=== PATIENT | male | born 2000 | race Two or more races ===

== ENCOUNTER 2023-08-18 15:19 | Inpatient (IN) | payer OTHER ==
[2023-08-18] MEDS ORDERED: KETAMINE HCL 500 MG/10 ML VIAL ONE (18:11)
[2023-08-18] MEDS: KETAMINE HCL 200 MG/20 ML VIAL IVPUSH ONE (18:14)
[2023-08-18 19:22] LABS: HEMATOCRIT 48.2 % (35.4-49); MCH 30.2 pg (25.7-33.7); MCHC 33.1 g/dl (32.0-35.9); MEAN CELL VOLUME 91.3 fl (80-96); MEAN PLT VOLUME 9.4 fl (7.5-11.1); PLATELET COUNT 195.2 10^3/uL (134-434); RBC 5.28 10^6/uL (4.00-5.60); RDW 13.1 % (11.9-15.9); WHITE BLOOD COUNT 14.7 10^3/uL (4.0-10.8)
[2023-08-18 19:31] LABS: INR 1.04 (0.83-1.09); PROTHROMBIN TIME (PATIENT) 12.1 SEC (9.7-13.0)
[2023-08-18 19:34] LABS: ACTIVATED PTT 30.8 SECONDS (25.2-36.5)
[2023-08-18 19:36] LABS: PLATELET ESTIMATE ADEQUATE
[2023-08-18 19:42] LABS: ALBUMIN 5.2 g/dl (3.4-5.0); BILIRUBIN,TOTAL 0.7 mg/dl (0.2-1); CALCIUM 9.9 mg/dl (8.5-10.1); POTASSIUM 3.4 mmol/L (3.5-5.1); TOT PROT 7.9 g/dl (6.4-8.2)
[2023-08-19 01:58] VITALS: BMI 24.3
[2023-08-19] MEDS ORDERED: ACETAMINOPHEN 1000 MG/100 ML BAG IVPB PRN (02:02)
[2023-08-19] MEDS: POTASSIUM CHLORIDE ORAL LIQUID 20 MEQ/15 ML PO ONE ×2 (05:47→05:48)
[2023-08-19] MEDS: KCL 10 MEQ IVPB 10 MEQ/100 ML INFUS.BAG IVPB SCH (05:47)
[2023-08-19 09:56] LABS: BASO % 0.7 % (0-2.0); EOS % 0.8 % (0-4.5); HEMATOCRIT 42.8 % (35.4-49); HEMOGLOBIN 14.2 GM/dL (11.7-16.9); LYMPH % 22.5 % (8-40); MCHC 33.2 g/dl (32.0-35.9); MEAN CELL VOLUME 90.4 fl (80-96); MEAN PLT VOLUME 8.8 fl (7.5-11.1); MONO % 8.9 % (3.8-10.2); NEUT % 67.1 % (42.8-82.8); PLATELET COUNT 193 10^3/uL (134-434); RBC 4.74 M/mm3 (4.00-5.60); RDW 12.7 % (11.9-15.9); WHITE BLOOD COUNT 6.7 K/mm3 (4.0-10.0)
[2023-08-19] MEDS: NICOTINE 7 MG/24 HOURS TOPICAL PATCH TD SCH (10:14)
[2023-08-19] MEDS ORDERED: FENTANYL CITRATE/PF 50 MCG/ML VIAL ONE ×3 (10:45→11:50)
[2023-08-19] MEDS ORDERED: SUCCINYLCHOLINE CHLORIDE 200 MG/10 ML SYRINGE ONE (10:45)
[2023-08-19] MEDS ORDERED: PROPOFOL 20 ML ONE (10:45)
[2023-08-19] MEDS ORDERED: MIDAZOLAM HCL 2 MG/2 ML SINGLE DOSE VIAL ONE (10:46)
[2023-08-19] MEDS ORDERED: ROCURONIUM BROMIDE 50 MG/5 ML SYRINGE ONE (10:46)
[2023-08-19] MEDS ORDERED: FLU VACCINE (FLULAVAL) PF 60 MCG/0.5 ML SYRINGE 2023-2024 IM ONE (11:00)
[2023-08-19] MEDS: ceFAZolin SODIUM 1 GM VIAL IVPB ONE (11:01)
[2023-08-19 11:22] LABS: SYPHILIS W/ RPR CONF NON-REACTIVE (NONREACTIVE)
[2023-08-19 11:50] LABS: HIV INTERPRETATION NEGATIVE (NEGATIVE)
[2023-08-19] MEDS ORDERED: ONDANSETRON 4 MG/2 ML VIAL IVPUSH PRN ×2 (12:25→12:59)
[2023-08-19] MEDS ORDERED: HYDROmorphone HCl 2 MG/ML VIAL IVPB PRN (12:59)
[2023-08-19] MEDS ORDERED: oxyCODONE HCL 5 MG TABLET PO PRN (12:59)
[2023-08-19] MEDS: LACTATED RINGERS SOLUTION 1,000 ML IV SCH ×2 (14:24→14:29)
[2023-08-19] MEDS: cefTRIAXone SODIUM 1 GM VIAL IVPB ONE (14:29)
[2023-08-19] MEDS: ACETAMINOPHEN 1000 MG/100 ML BAG IVPB SCH (18:09)
[2023-08-19] MEDS: HYDROCORTISONE ACETATE 25 MG/SUPP.RECT RC SCH (23:00)
[2023-08-20 04:19] VITALS: RESP 18
[2023-08-20] MEDS: NICOTINE 7 MG/24 HOURS TOPICAL PATCH TD SCH (09:28)
[2023-08-20 09:41] LABS: HEMATOCRIT 41.2 % (35.4-49); HEMOGLOBIN 13.8 GM/dL (11.7-16.9); MCH 29.9 pg (25.7-33.7); MCHC 33.5 g/dl (32.0-35.9); MEAN CELL VOLUME 89.3 fl (80-96); MEAN PLT VOLUME 8.8 fl (7.5-11.1); PLATELET COUNT 181 10^3/uL (134-434); RBC 4.61 M/mm3 (4.00-5.60); RDW 12.6 % (11.9-15.9); WHITE BLOOD COUNT 7.8 K/mm3 (4.0-10.0)
[2023-08-20 09:46] LABS: POTASSIUM 3.8 mmol/L (3.5-5.1)
[2023-08-20 09:55] LABS: CALCIUM 8.9 mg/dL (8.5-10.1)
[2023-08-20 09:56] LABS: ALBUMIN 3.9 g/dl (3.4-5.0); BLOOD UREA NITROGEN 12.4 mg/dL (7-18)
[2023-08-20 10:01] LABS: TOT PROT 6.9 g/dl (6.4-8.2)
[2023-08-20] MEDS: FLU VACCINE (FLULAVAL) PF 60 MCG/0.5 ML SYRINGE 2023-2024 IM ONE (10:39)
[2023-08-20 11:16] VITALS: BP 111/60; PULSE 66; TEMP 98.2
== END 2023-08-20 16:57 | disposition home or self-care (01) | DRG 395 ==
LOC: FER 15:19 → J6S 19:50 → UNDOADMIN 08-19 01:04
PROVIDERS: ADMIT Surgery; ATTEND Internal Medicine
PROC: 0DCP8ZZ Extirpation of Matter from Rectum, Via Natural or Artificial Opening Endoscopic (ICD-10-PCS; principal; 2023-08-20)
DX: T18.5XXA Foreign body in anus and rectum, initial encounter (principal); F17.210 Nicotine dependence, cigarettes, uncomplicated; E87.6 Hypokalemia; F12.10 Cannabis abuse, uncomplicated; D72.829 Elevated white blood cell count, unspecified; W44.8XXA Other foreign body entering into or through a natural orifice, initial encounter; Y92.89 Other specified places as the place of occurrence of the external cause; Y99.9 Unspecified external cause status
CPT/HCPCS: 36415; 71045-TC-FY; 74018-TC-FY; 74021-TC-FY; 76000-TC-FY; 80053; 85025; 85027; 85610; 85730; 86780; 86850; 86900; 86901; 87389; 88300-TC; 90686; 94760; 99285-25; G0008; J0131